=== PATIENT | female | born 1985 | race Caucasian/White ===

== ENCOUNTER 2016-10-15 15:36 | Emergency (ER) | payer MEDICAID ==
[~2016-10-15] VITALS: Ht 167.6 cm; Wt 81.6 kg
[~2016-10-15 15:36] MED LIST: ERYTHROMYCIN 2250 M3 PO; IBUPROFEN 600M600 MG PO; NORCO 325 MG-51 TAB PO; PERCOCET1 TAB PO
--- NOTE | 2016-10-15 15:59 | Emergency Room Report ---
History of Present Illness Time Seen by [id number] Presenting Problem in Triage Pt arrived:Walked Presenting Problem:states that she has "spurs in her back" and she fell down the stairs this afternoon and landed on her back Onset of symptoms date/time:10/15/16 or onset unknown for: Treatment Prior to Arrival: [facility] Provided by:LAYPERSON Sepsis Risk Assessment: Temp: 98.0 B/P: 132/74 MAP: 93 Pulse: 104 Resp: 20 Recent fever? N Clinical Suspician of Infection? N Mental Status: 1 - Regular (Normal Baseline) Sepsis Risk:Possible Sepsis Risk Have you (or family members/close friends) recently traveled outside the [place]? N If Yes, where/when: Have you had exposure to infectious disease within the past month? TB? Other? Specify: Source patient, RN notes reviewed Exam Limitations no limitations Comment Pt comes to the ED stating she fell down some stairs today and now having worsening pain in her low back. She says she has a history of "spurs' in her back but this pain is worse than her usual pain. Cardiac Chest Pain Chest pain indicative of cardiac No ALLERGIES Coded Allergies: No Known Allergies (10/06/16) Home Medications Reported Medications IBUPROFEN MICRONIZED (IBUPROFEN 600MG) 600 MG PO Q8HP PRN DENTAL PAIN History Medical History General CAD? No Angina: No IA: No Hypertension? No Hyperlipidemia? No CHF? No DVT? No PE? No COPD? No Asthma? No Anemia? No GERD? No Gastric ulcers? No GI Bleed? No Hernia? No Thyroid Problems? No Hypothyroidism? No CVA? No Seizures? No Diabetes? No Renal Insuffiency? No End Stage Renal Disease? No UTI? No Stones? No BPH? No GB Disease: No Nephritic Syndrome? No Asplenia? No Hepatitis? No Sickle Cell Disease? No Arthritis? No Migraines? No Cataracts? No Glaucoma? No MRSA? No HIV? No TB? No Anxiety? Yes Depression? No Cancer? No More? 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 No Results/Orders Laboratory Tests 10/15/16 1556: Opiates Screen NEGATIVE, Urine Methadone Screen NEGATIVE, Barbiturates NEGATIVE, Phencyclidine Screen NEGATIVE, Amphetamines Screen NEGATIVE, Benzodiazepines Screen NEGATIVE, Cocaine Screen NEGATIVE, Marijuana (THC) Screen NEGATIVE, Urine Color YELLOW, Urine Appearance SL CLOUDY, Urine pH 6.0, Ur Specific [place] 1.020, Urine Protein NEGATIVE, Urine Ketones NEGATIVE, Urine Blood 3+ H, Urine Nitrate NEGATIVE, Urine Bilirubin NEGATIVE, Urine Urobilinogen 0.2, Ur Leukocyte Esterase 3+ H, Urine RBC 10-20, Urine WBC 20-50, Ur Squamous Epith Cells 5-10, Urine Bacteria 3+, Urine Mucus 1+, Urine Trichomonas 2+, Urine Glucose NEGATIVE Orders Procedure Date/time Status LUMBAR SPINE 5 VIEWS 10/15 155 Active CULTURE, URINE 10/15 155 Active URINALYSIS/COMPLETE 10/15 155 Complete URINE 10/15 155 Complete DRUG ABUSE SCREEN (10) 10/15 1556 Complete XRAY/CT/US XRAY/CT/US XRAY L-spine XR interpretation by reviewed by me Xray Results Mild DJD with mild straightening of L spine consistent with Muscle strain Departure Departure Time of Disposition 1645 Disposition DC Home or Self Care(routine) Clinical Impression Primary Impression: Cystitis with hematuria Secondary Impressions: Lumbar sprain Qualifiers: Encounter type: initial encounter Qualified Code: S33.5XXA - Sprain of ligaments of lumbar spine, initial encounter Condition STABLE Patient Instructions Acute Cystitis, DI for Acute Cystitis, DI for Low Back Pain , Low Back Pain Additional Instructions Sleep on a flat, hard surface and alternate Ice and heat an use whichever modality that helps the most. Use meds as directed. Followup with PCP in 3 to 4 days to recheck urine and re-evaluate low back pain Discharge Counseling Counseled pt/family regarding diagnosis, test results, medications/RX, home care, follow up needs Prescriptions Current Visit Scripts Ciprofloxacin HCl (Cipro 500MG TAB) 500 MG PO BID #20 TAB Methocarbamol (Robaxin) 500 MG PO BID #30 TAB DICLOFENAC SODIUM (Diclofenac 50MG) 50 MG PO BID #30 TAB ED Critical Care Critical Care No If Critical Care minutes are documented, the time involved in the performance of seperately reportable procedures was not counted toward critical care time documented. I directly delivered medical care to this critically ill and/or injured patient. Timely evaluation and treatment was necessary to address the significant organ system(s) dysfunction present in this patient. at [id number]
[2016-10-15 16:04] LABS: URINE BILIRUBIN - DIPSTICK NEGATIVE (NEG); URINE BLOOD 3+ (NEG)
[2016-10-15 16:16] LABS: AMPHETAMINES/METAMPHETAMINES NEGATIVE ng/mL (<1000)
[2016-10-15] MEDS ORDERED: ROBAXIN500 M1 PO (16:49)
[2016-10-15] MEDS ORDERED: CIPRO 500MG TA500 MG PO (16:49)
[2016-10-15] MEDS ORDERED: DICLOFENAC 50MG50 MG PO (16:49)
[2016-10-15 16:55] VITALS: BP 126/72
--- NOTE | 2016-10-15 19:23 | RADIOLOGY REPORT PS360 ---
LUMBAR SPINE 5 VIEWS COMPARISON: None HISTORY: Back pain TECHNIQUE: AP lateral and oblique views and spot view lumbosacral junction FINDINGS: There is normal curvature and alignment. All lumbar vertebrae appear intact and disc spaces are well maintained throughout. There is no pars defect. The SI joints are normal. There is minimal anterior osteophytic spurring anterior superior border of L4 and L5. IMPRESSION: Essentially Negative lumbar spine
== END 2016-10-15 16:59 | disposition home or self-care (01) ==
LOC: ER 15:36
PROVIDERS: General Practice
DX: S33.5XXA Sprain of ligaments of lumbar spine, initial encounter (principal); N30.01 Acute cystitis with hematuria; Z72.0 Tobacco use; W10.9XXA Fall (on) (from) unspecified stairs and steps, initial encounter; Y92.009 Unspecified place in unspecified non-institutional (private) residence as the place of occurrence of the external cause